=== PATIENT | male | born 1950 | race Caucasian/White ===

== ENCOUNTER → 2021-10-10 | Day surgery (SDC) | payer MEDICARE, OTHER ==
[~2021-10-10] MED LIST: ACETAMINOPHEN 1000 MG/100 ML 100 ML IV ONE; ATROPINE SULFATE 1 MG/ML VIAL ONE; BUPIVACAINE HCL 0.5% 10ML MPF VIAL INJ ONE; BYSTOLIC10 MG PO; DEXAMETHASONE SOD PHOS INJ 4 MG/ML SDV ONE; FENTANYL CITRATE/PF 100MCG/2 ML INJ ONE; KETOROLAC TROMETHAMINE 30 MG/ML VIAL ONE; LIDOCAINE HCL 2% LOCAL INJ 5 ML SDV VIAL INJ ONE; LIVALO2 MG PO; LOSARTAN POTAS100 MG PO; METFORMIN HCL500 MG PO; ONDANSETRON HCL INJ 2MG/ML 2ML 2 MG/ML VIAL ONE; POVIDONE IODINE 0.05% 0.05 % ML PO ONE; PROPOFOL IV EMULSION 10 MG/ML 20 ML VIAL ONE; ROCURONIUM BROMIDE 10 MG/ML 5ML VIAL IV ONE; SEVOFLURANE INHAL SOLN 250 ML PEN BTL ONE; SUGAMMADEX SODIUM 200 MG/2 ML VIAL IV ONE; ULTRACET TABLE1 EACH PO; VERAPAMIL HCL 2.5 MG/ML 2 ML VIAL ONE
[2021-10-10 14:00] VITALS: BP 140/81
== END | disposition home or self-care (01) ==
LOC: OR 09:54
PROVIDERS: ATTEND Surgery
DX: K80.10 Calculus of gallbladder with chronic cholecystitis without obstruction (principal); K76.0 Fatty (change of) liver, not elsewhere classified; K82.8 Other specified diseases of gallbladder; I10 Essential (primary) hypertension; Z88.6 Allergy status to analgesic agent; Z01.812 Encounter for preprocedural laboratory examination; Z20.822 Contact with and (suspected) exposure to COVID-19; Z79.899 Other long term (current) drug therapy
CPT/HCPCS: 47562; 88304; J0131; J0461; J0690; J1100; J1885; J2001; J2405; J2704; J3010; U0002